=== PATIENT | female | born 1955 | race Caucasian/White ===

== ENCOUNTER 2019-03-13 05:38 | Day surgery (SDC) | payer MEDICARE, OTHER ==
[~2019-03-13] VITALS: Ht 157.5 cm; Wt 81.6 kg
[~2019-03-13 05:38] MED LIST: ASPI-1159 PO; GABA-533 PO; GLIP10TA10 PO; HYDR25TA PO; LOSA100T14 PO; METF-416 PO; NAPR-681 PO; PRAV40TA58 PO; RANO10003 PO; SITA100T11 PO
[2019-03-13] MEDS ORDERED: PHENYLEPHRINE HCL 10% OPHTH DROPS 5ML LEFTEYE NR (06:05)
[2019-03-13] MEDS ORDERED: CYCLOPENTOLATE HCL 1% OPHTH DROPS 2ML LEFTEYE NR (06:05)
[2019-03-13] MEDS ORDERED: TROPICAMIDE 1% OPHTH DROPS 15ML LEFTEYE NR (06:05)
[2019-03-13] MEDS ORDERED: SODIUM CHLORIDE 0.9% 1,000 ML IV SCH (06:30)
[2019-03-13] MEDS ORDERED: HYALURONATE SODIUM 14 MG/ML 0.85ML SYRINGE IO ONE (07:08)
[2019-03-13] MEDS ORDERED: MIDAZOLAM HCL 2 MG/2 ML VIAL ONE (08:22)
[2019-03-13] MEDS ORDERED: SODIUM CHLORIDE 0.9% 1,000 ML IV ONE (08:57)
[2019-03-13] MEDS ORDERED: ONDANSETRON HCL 4MG/2ML INJ IV PRN (09:00)
[2019-03-13] MEDS ORDERED: TETRACAINE 0.5% OPHTH DROPS 4ML ONE (13:16)
[2019-03-13] MEDS ORDERED: NEO/POLYMYX B SULF/DEXAMETH OPHTH OINT 3.5GM ONE (13:16)
[2019-03-13] MEDS ORDERED: PREDNISOLONE ACETATE 1% OPHTH DROPS 1ML ONE (13:16)
[2019-03-13] MEDS ORDERED: CIPROFLOXACIN 0.3% OPHTH SOLN 2.5ML ONE (13:16)
[2019-03-13] MEDS ORDERED: LIDOCAINE HCL/PF 2% 20 MG/ML 10ML VIAL ONE (13:16)
[2019-03-13] MEDS ORDERED: BALANCED SALT IRRIG SOLN 15ML ONE (13:16)
== END 2019-03-13 10:25 | disposition home or self-care (01) ==
LOC: OR 05:38
PROVIDERS: ATTEND Ophthalmology
DX: H25.89 Other age-related cataract (principal); I10 Essential (primary) hypertension; E11.9 Type 2 diabetes mellitus without complications; E66.3 Overweight
CPT/HCPCS: 66984; 82962; J2250; J3490; V2632